=== PATIENT | female | born 1990 | race Caucasian/White ===

== ENCOUNTER 2017-05-05 23:10 | Emergency (ER) | payer OTHER ==
[2017-05-06] MEDS: KETOROLAC 60 MG/2 ML VIAL (J1885) IM (05:00)
== END 2017-05-06 05:13 | disposition home or self-care (01) ==
LOC: M ED 23:10
DX: S30.0XXA Contusion of lower back and pelvis, initial encounter (principal); W00.9XXA Unspecified fall due to ice and snow, initial encounter; Y92.410 Unspecified street and highway as the place of occurrence of the external cause; J45.909 Unspecified asthma, uncomplicated; F17.210 Nicotine dependence, cigarettes, uncomplicated; Z88.0 Allergy status to penicillin; Z88.1 Allergy status to other antibiotic agents; Z88.2 Allergy status to sulfonamides
CPT/HCPCS: J1885